=== PATIENT | male | born 1955 | race Caucasian/White ===

== ENCOUNTER 2016-09-29 15:44 | Emergency (ER) | payer MEDICARE, SELFPAY ==
[2016-09-29 17:31] LABS: BASOPHIL 0.3 % (0-2); EOSINOPHIL 0.7 % (0-5); HCT 43.7 % (42.0-52.0); HGB 14.9 g/dl (13.2-18.0); LYMPHOCYTE 16.5 % (15-48); MCH 30.3 pg (25.0-31.0); MCHC 34.1 g/dL (32.0-36.0); MCV 88.8 fL (78.0-100.0); MONOCYTE 9.2 % (0-12); MPV 10.5 fL (6.0-9.5); NEUTROPHIL 73.3 % (41-80); PLT 203 K/uL (150-400); RBC 4.92 M/uL (4.70-6.00); RDW 16.5 % (11.5-14.0); WBC 11.3 K/uL (4.0-10.5)
[2016-09-29 17:42] LABS: PRO-BNP 61 pg/mL (0-125); TROPONIN T < 0.010 ng/mL
[2016-09-29 17:44] LABS: ALBUMIN 3.9 g/dL (3.4-4.8); BILIRUBIN - TOTAL 0.5 mg/dL (0.1-1.0); CREATININE 0.7 mg/dL (0.7-1.2); GLOBULIN (CALCULATION) 2.6 g/dL (2.2-4.2); POTASSIUM 4.4 mmol/L (3.5-5.1); TOTAL PROTEIN 6.5 g/dL (6.4-8.3)
== END 2016-09-29 18:44 | disposition home or self-care (01) ==
LOC: FER 15:44
PROVIDERS: Emergency Medicine
DX: R06.02 Shortness of breath (principal); R19.7 Diarrhea, unspecified; I10 Essential (primary) hypertension; J44.9 Chronic obstructive pulmonary disease, unspecified
CPT/HCPCS: 36415; 71010; 80053; 83880; 84484; 85025; 93005

== ENCOUNTER → 2016-10-04 | Day surgery (SDC) | payer MEDICARE, SELFPAY ==
[~2016-10-04] VITALS: Ht 175.3 cm; Wt 65.8 kg
== END | disposition home or self-care (01) ==
LOC: FAS 11:02
DX: K52.9 Noninfective gastroenteritis and colitis, unspecified (principal); I27.2 Other secondary pulmonary hypertension; I10 Essential (primary) hypertension; J44.9 Chronic obstructive pulmonary disease, unspecified; F32.9 Major depressive disorder, single episode, unspecified; F41.9 Anxiety disorder, unspecified; F17.210 Nicotine dependence, cigarettes, uncomplicated; Q85.00 Neurofibromatosis, unspecified; Z88.0 Allergy status to penicillin; Z88.8 Allergy status to other drugs, medicaments and biological substances; Z89.612 Acquired absence of left leg above knee; Z90.49 Acquired absence of other specified parts of digestive tract; Z86.010 Personal history of colon polyps; Z82.49 Family history of ischemic heart disease and other diseases of the circulatory system; Z81.1 Family history of alcohol abuse and dependence; Z82.3 Family history of stroke; Z79.82 Long term (current) use of aspirin; Z79.899 Other long term (current) drug therapy; Z98.890 Other specified postprocedural states
CPT/HCPCS: 88305; J2704

== ENCOUNTER 2016-10-05 17:54 | Emergency (ER) | payer MEDICARE, SELFPAY ==
[2016-10-05 19:37] LABS: BASOPHIL 0.3 % (0-2); EOSINOPHIL 0.8 % (0-5); HCT 44.7 % (42.0-52.0); HGB 15.4 g/dl (13.2-18.0); MCH 30.2 pg (25.0-31.0); MCHC 34.5 g/dL (32.0-36.0); MCV 87.6 fL (78.0-100.0); NEUTROPHIL 71.9 % (41-80); PLT 225 K/uL (150-400); RDW 15.9 % (11.5-14.0); WBC 12.2 K/uL (4.0-10.5)
[2016-10-05 19:52] LABS: ALBUMIN 3.9 g/dL (3.4-4.8); BILIRUBIN - TOTAL 0.6 mg/dL (0.1-1.0); CREATININE 0.7 mg/dL (0.7-1.2); GLOBULIN (CALCULATION) 2.4 g/dL (2.2-4.2); POTASSIUM 3.6 mmol/L (3.5-5.1); TOTAL PROTEIN 6.3 g/dL (6.4-8.3)
[2016-10-05 20:12] LABS: BILIRUBIN 1+ mg/dL (NEGATIVE); BLOOD NEGATIVE Ery/uL (NEGATIVE); CLARITY CLEAR (CLEAR); COLOR YELLOW (YELLOW); GLUCOSE (U) NORMAL (NORMAL); KETONE (U) NEGATIVE (NEGATIVE); LEUKOCYTES NEGATIVE Leu/uL (NEGATIVE); NITRITE NEGATIVE (NEGATIVE); PROTEIN TRACE (LOW) mg/dL (NEGATIVE); SPECIFIC GRAVITY >=1.030 (1.001-1.030); UROBILINOGEN 0.2 mg/dL (0.2-1.0)
[2016-10-05 20:21] LABS: BACTERIA TRACE; CALCIUM OXALATE CRYSTALS MODERATE
== END 2016-10-05 22:59 | disposition home or self-care (01) ==
LOC: FER 17:54
PROVIDERS: Emergency Medicine
DX: K52.9 Noninfective gastroenteritis and colitis, unspecified (principal); R82.90 Unspecified abnormal findings in urine; E11.9 Type 2 diabetes mellitus without complications; I27.2 Other secondary pulmonary hypertension; J44.9 Chronic obstructive pulmonary disease, unspecified; Z87.19 Personal history of other diseases of the digestive system; Z88.0 Allergy status to penicillin; Z79.82 Long term (current) use of aspirin; Z79.899 Other long term (current) drug therapy
CPT/HCPCS: 36415; 80053; 81001; 83690; 85025; 87040; 87045; 87046; 87088; 87324; 87449; J1885

== ENCOUNTER 2020-11-20 11:09 | Emergency (ER) | payer MEDICARE ==
[~2020-11-20 11:09] MED LIST: ADEMPAS2.5 MG PO; ADVAIR 500-501 EACH INH; ASPIRIN EC81 MG PO; ASPIRIN325 MG PO; ATARAX25 MG PO; ATORVASTATIN CA10 MG PO; ATROVENT (00.2 MG/ML INH; ATROVENT HFA12.9 GM INH; AZITHROMYCIN250 MG PO; BENAZEPRIL HCL20 MG PO; CEFDINIR300 MG PO; CENTRUM ADULTS1 EACH PO; ELIQUIS5 MG PO; IPRAT-ALBUT 0.5-3 ML INH; LASIX20 MG PO; LEVAQUIN750 MG PO; LIPITOR 10MG TA10 MG PO; LOPRESSOR25 MG PO; MEDROL 4MG DOSEP4 MG PO; NITROQUIK SL0.4 MG SL; OPSUMIT10 MG PO; REVATIO 20MG TA20 MG PO; SINEQUAN10 MG PO; SINEQUAN25 MG PO; SPIRIVA RESPIMAT4 G1 INH; SYNTHROID150 MCG PO; SYNTHROID75 MCG PO; TRAZODONE 100M100 MG PO; VENTOLIN (2.5 MG/3 M INH; VENTOLIN HFA IN18 GM INH; YUPELRI175 MCG/3 INH; ZOLOFT100 MG PO; ZOLOFT50 MG PO
[2020-11-20 12:26] LABS: BASOPHIL 0.4 % (0-2); EOSINOPHIL 0.1 % (0-7); HCT 44.3 % (42.0-52.0); HGB 14.3 g/dl (13.2-18.0); LYMPHOCYTE 17.3 % (15-48); MCH 28.4 pg (25.0-31.0); MCHC 32.3 g/dL (32.0-36.0); MCV 88.1 fL (78.0-100.0); MONOCYTE 9.6 % (0-12); MPV 9.4 fL (6.0-9.5); NEUTROPHIL 69.3 % (41-80); NRBC 0; PLT 272 K/uL (150-400); RBC 5.03 M/uL (4.70-6.00); RDW 18.3 % (11.5-14.0); WBC 11.5 K/uL (4.0-10.5)
[2020-11-20 12:48] LABS: ALBUMIN 3.1 g/dL (3.4-5.0); BUN/CREAT RATIO (CALC) 30.4 RATIO; CREATININE 1.02 mg/dL (0.67-1.17); POTASSIUM 3.5 mmol/L (3.5-5.1); TOTAL PROTEIN 6.1 g/dL (6.4-8.2)
[2020-11-20 12:59] LABS: PRO-BNP 2559 pg/mL (<125)
== END 2020-11-21 13:29 | disposition other institution (70) ==
LOC: FER 11:09
PROVIDERS: Emergency Medicine
DX: J44.0 Chronic obstructive pulmonary disease with (acute) lower respiratory infection (principal); J18.9 Pneumonia, unspecified organism; I27.20 Pulmonary hypertension, unspecified; Z20.822 Contact with and (suspected) exposure to COVID-19; Z88.1 Allergy status to other antibiotic agents; Z88.0 Allergy status to penicillin; Z87.891 Personal history of nicotine dependence
CPT/HCPCS: 36415; 36600; 71045; 80053; 82803; 83605; 83880; 84145; 84484; 85025; 87040; 93005; 94640; J0456; J0696; J7050; U0002